=== PATIENT | female | born 1985 | race Caucasian/White ===

== ENCOUNTER → 2020-09-16 | Outpatient (CLI) | payer OTHER ==
[~2020-09-16] MED LIST: HYDROCODON-ACE1 EAC2 PO; IBUPROFEN200 MG PO; LEVOTHYROXINE112 MCG PO; MONTELUKAST SOD10 MG PO; VITAMIN D350 MC3 PO
== END ==
LOC: KOH-I 09-11 15:15
DX: S83.242A Other tear of medial meniscus, current injury, left knee, initial encounter (principal); R55 Syncope and collapse; M76.50 Patellar tendinitis, unspecified knee
CPT/HCPCS: 73721

== ENCOUNTER → 2020-10-02 | Outpatient (CLI) | payer OTHER ==
[~2020-10-02] MED LIST changes: +BUSPIRONE HCL15 MG PO; +CELECOXIB100 MG PO; +TYLENOL 8 HOUR650 MG PO
[2020-10-02 11:25] LABS: HEMOGLOBIN 14.2 gm/dl (12.3-15.3); RED BLOOD COUNT 4.94 M/UL (4.00-5.10); WHITE BLOOD COUNT 7.7 K/UL (4.5-11.0)
[2020-10-02 11:43] LABS: BUN/CREATININE RATIO 12 (0-10)
== END ==
LOC: OPSV2 10:25
PROVIDERS: Orthopaedic Surgery
DX: Z01.812 Encounter for preprocedural laboratory examination (principal); S83.242A Other tear of medial meniscus, current injury, left knee, initial encounter; X58.XXXA Exposure to other specified factors, initial encounter
CPT/HCPCS: 36415; 80048; 85025

== ENCOUNTER → 2020-10-08 | Day surgery (SDC) | payer OTHER ==
[~2020-10-08] VITALS: Ht 165.1 cm; Wt 122.9 kg
== END | disposition home or self-care (01) ==
LOC: OR 07:26
DX: S83.242A Other tear of medial meniscus, current injury, left knee, initial encounter (principal); M94.262 Chondromalacia, left knee; Z91.81 History of falling; M76.9 Unspecified enthesopathy, lower limb, excluding foot; M65.9 Synovitis and tenosynovitis, unspecified; E55.9 Vitamin D deficiency, unspecified; Z90.49 Acquired absence of other specified parts of digestive tract; Z20.822 Contact with and (suspected) exposure to COVID-19; I49.8 Other specified cardiac arrhythmias; E66.01 Morbid (severe) obesity due to excess calories; Z68.42 Body mass index [BMI] 45.0-49.9, adult; E03.9 Hypothyroidism, unspecified
CPT/HCPCS: 84703; J0171; J0690; J1100; J1170; J1885; J2001; J2250; J2405; J2704; J3010; J7120

== ENCOUNTER 2020-12-20 16:12 | Inpatient (IN) | payer OTHER ==
[~2020-12-20] VITALS: Ht 165.1 cm; Wt 133.0 kg
[~2020-12-20 16:12] MED LIST changes: -BUSPIRONE HCL15 MG PO; -CELECOXIB100 MG PO; -LEVOTHYROXINE112 MCG PO; -TYLENOL 8 HOUR650 MG PO
[2020-12-20 16:58] LABS: HEMOGLOBIN 14.9 gm/dl (12.3-15.3); RED BLOOD COUNT 4.82 M/UL (4.00-5.10); WHITE BLOOD COUNT 3.4 K/UL (4.5-11.0)
[2020-12-20 17:32] LABS: BUN/CREATININE RATIO 8 (0-10)
[2020-12-21 04:10] LABS: HEMOGLOBIN 13.5 gm/dl (12.3-15.3); RED BLOOD COUNT 4.37 M/UL (4.00-5.10); WHITE BLOOD COUNT 3.2 K/UL (4.5-11.0)
[2020-12-21 04:35] LABS: BUN/CREATININE RATIO 11 (0-10)
[2020-12-21] MEDS ORDERED: BUSPIRONE HCL15 MG PO (12:04)
[2020-12-21] MEDS ORDERED: CELECOXIB100 MG PO (12:05)
[2020-12-21] MEDS ORDERED: TYLENOL 8 HOUR650 MG PO (12:06)
[2020-12-21] MEDS ORDERED: LEVOTHYROXINE112 MCG PO (15:06)
[2020-12-22 07:06] LABS: HEMOGLOBIN 13.3 gm/dl (12.3-15.3); RED BLOOD COUNT 4.4 M/UL (4.00-5.10)
[2020-12-22 07:07] LABS: WHITE BLOOD COUNT 8.4 K/UL (4.5-11.0)
[2020-12-22 07:23] LABS: BUN/CREATININE RATIO 14 (0-10)
[2020-12-23 06:29] LABS: HEMOGLOBIN 13.6 gm/dl (12.3-15.3); RED BLOOD COUNT 4.47 M/UL (4.00-5.10); WHITE BLOOD COUNT 10.5 K/UL (4.5-11.0)
[2020-12-23 06:50] LABS: BUN/CREATININE RATIO 16 (0-10)
--- NOTE | 2020-12-24 06:21 | NUR ---
12/24/2020 @ 04:45 - Patient O2 sat is fluctuating between 70's-mid 80's. Patient is tachypneic and has shallow breaths. Patient is placed on nonrebreather at 100%. O2 sat is still not increasing above 88%. Dr Luna notified of condition change at 04:55, obtained order for Bipap 10/5 and Robitussin 100mg q6h prn. 05:25 - Patient placed on Bipap 10/5. O2 sat increased to mid-90's. Patient is still tachypneic with shallow breaths. 05:45 - Morphine 0.5mg administered to assist with decreasing the increased respiratory rate.
[2020-12-24 07:07] LABS: HEMOGLOBIN 13.1 gm/dl (12.3-15.3); RED BLOOD COUNT 4.31 M/UL (4.00-5.10); WHITE BLOOD COUNT 12.2 K/UL (4.5-11.0)
[2020-12-24 07:34] LABS: BUN/CREATININE RATIO 17 (0-10)
--- NOTE | 2020-12-24 10:03 | NUR ---
ATTEMPTED TO CALL PT , GINA, PER PATIENT REQUEST. NO ANSWER. WILL ATTEMPT TO MAKE CONTACT WITH HIM AT A LATER TIME.
--- NOTE | 2020-12-24 11:35 | NUR ---
SPOKE WITH PT , GINA, INFORMED HIM OF PT WORSENING AND EDUCATED HIM ON THE IMPORTANCE OF SPEAKING WITH ABOUT THE POSSIBILITY OF INTUBATION. I HAVE ALREADY HAD THIS DISCUSSION WITH PATIENT. ALSO TOLD HIM ABOUT PATIENT BEING TRANSFERRED TO ICU TO ROOM 2124. REPORT GIVEN TO SAIRA TEJEDA. PT STABLE AT THIS TIME. WCTM.
[2020-12-25 04:47] LABS: HEMOGLOBIN 13.2 gm/dl (12.3-15.3); RED BLOOD COUNT 4.27 M/UL (4.00-5.10)
[2020-12-25 05:08] LABS: BUN/CREATININE RATIO 16 (0-10)
[2020-12-26 06:24] LABS: HEMOGLOBIN 12.6 gm/dl (12.3-15.3); RED BLOOD COUNT 4.15 M/UL (4.00-5.10); WHITE BLOOD COUNT 11.1 K/UL (4.5-11.0)
[2020-12-26 07:44] LABS: BUN/CREATININE RATIO 21 (0-10)
[2020-12-26] MEDS ORDERED: LEVOPHED (17:21)
[2020-12-26] MEDS ORDERED: DECADRON IM/I4 MG/ML IVP ×2 (17:21→17:22)
[2020-12-26] MEDS ORDERED: PROPOFOL (17:21)
[2020-12-26] MEDS ORDERED: ENOXAPARIN40 MG/0.4 SC ×2 (17:21→17:22)
[2020-12-27 08:14] LABS: HEMOGLOBIN 13.3 gm/dl (12.3-15.3); RED BLOOD COUNT 4.46 M/UL (4.00-5.10)
[2020-12-27 08:15] LABS: WHITE BLOOD COUNT 15.2 K/UL (4.5-11.0)
[2020-12-27 08:37] LABS: BUN/CREATININE RATIO 23 (0-10)
--- NOTE | 2020-12-27 08:55 | NUR ---
SPOKE WITH SAIRA ADAMSON @ [facility]. PT INFO UPDATED. NO BED AVAILABLE AT THIS TIME. WILL UPDATE DAILY.
--- NOTE | 2020-12-27 12:09 | NUR ---
UPDATE GIVEN TO HER MOTHER - MASTER. UNABLE TO CONTACT HER - GINA - STATES PHONE HAS BEEN DISCONNECTED.
--- NOTE | 2020-12-27 13:52 | NUR ---
PT UNPRONED PER PROTOCOL. DEPENDENT EDEMA NOTED TO BOTH EYES WITH THE LEFT EYE MORE EDEMATOUS THAN THE RIGHT. COOL COMPRESSES APPLIED. BED LINENS CHANGED.
[2020-12-28 05:46] LABS: HEMOGLOBIN 14.1 gm/dl (12.3-15.3); RED BLOOD COUNT 4.57 M/UL (4.00-5.10); WHITE BLOOD COUNT 18.1 K/UL (4.5-11.0)
[2020-12-28 05:48] LABS: BUN/CREATININE RATIO 19 (0-10)
[2020-12-29 05:00] LABS: HEMOGLOBIN 14.3 gm/dl (12.3-15.3); RED BLOOD COUNT 4.5 M/UL (4.00-5.10); WHITE BLOOD COUNT 17.9 K/UL (4.5-11.0)
[2020-12-29 05:28] LABS: BUN/CREATININE RATIO 11 (0-10)
--- NOTE | 2020-12-30 00:40 | NUR ---
Patient remains proned. Report update given. care resumed.
--- NOTE | 2020-12-30 02:19 | NUR ---
RECEIVED CALL FROM [facility]. UPDATE GIVEN . STILL WAITING FOR AVAILABLE BED.
[2020-12-30 06:28] LABS: HEMOGLOBIN 12.7 gm/dl (12.3-15.3); RED BLOOD COUNT 3.77 M/UL (4.00-5.10); WHITE BLOOD COUNT 16.4 K/UL (4.5-11.0)
[2020-12-30 07:05] LABS: BUN/CREATININE RATIO 12 (0-10)
--- NOTE | 2020-12-30 19:20 | NUR ---
RECEIVED CALL FROM [facility]. BED 623 OBTAINED. REPORT GIVEN TO "DIANA LONG " . DR. LEONARDO NOTIFIED OF TRANSFER. [facility] NOTIFIED , PATIENTS WILL BE NOTIFIED BY DR. LEONARDO REGARDING TRANSFER.
--- NOTE | 2020-12-30 20:30 | NUR ---
[facility] HERE TO TRANSPORT. PATIENT LEFT VIA STRETCHER @ 2029. HER WAS NOTIFIED . BELONGINGS OBTAINED BY SECURITY . WHEN I SPOKE TO MR HUITRON HE STATED PATIENTS MOTHER IS A PATIENT HERE AT [facility]. BELONGINGS WILL BE GIVEN TO MASTER JOHNSON ( PATIENTS MOTHER ) BY SECURITY.
== END 2020-12-30 20:30 | disposition short-term general hospital (02) | DRG 870 ==
LOC: ER1 16:12 → CDU 18:58 → MED SURG 4 18:58 → CCU 18:58 → MED SURG 4 12-21 11:11 → CCU 12-24 12:25
PROVIDERS: Family Medicine; Internal Medicine; Internal Medicine Pulmonary Disease; ADMIT Internal Medicine
PROC: XW033E5 Introduction of Remdesivir Anti-infective into Peripheral Vein, Percutaneous Approach, New Technology Group 5 (ICD-10-PCS; principal; 2020-12-20)
PROC: 3E0333Z Introduction of Anti-inflammatory into Peripheral Vein, Percutaneous Approach (ICD-10-PCS; 2020-12-20)
PROC: 3E033XZ Introduction of Vasopressor into Peripheral Vein, Percutaneous Approach (ICD-10-PCS; 2020-12-20)
PROC: 8E0ZXY6 Isolation (ICD-10-PCS; 2020-12-20)
PROC: 5A0945A Assistance with Respiratory Ventilation, 24-96 Consecutive Hours, High Flow/Velocity Cannula (ICD-10-PCS; 2020-12-20)
PROC: 8E0ZXY6 Isolation (ICD-10-PCS; 2020-12-20)
PROC: XW033H5 Introduction of Tocilizumab into Peripheral Vein, Percutaneous Approach, New Technology Group 5 (ICD-10-PCS; 2020-12-22)
PROC: 5A09457 Assistance with Respiratory Ventilation, 24-96 Consecutive Hours, Continuous Positive Airway Pressure (ICD-10-PCS; 2020-12-24)
PROC: B24BZZ4 Ultrasonography of Heart with Aorta, Transesophageal (ICD-10-PCS; 2020-12-25)
PROC: 0BH17EZ Insertion of Endotracheal Airway into Trachea, Via Natural or Artificial Opening (ICD-10-PCS; 2020-12-26)
PROC: 5A1955Z Respiratory Ventilation, Greater than 96 Consecutive Hours (ICD-10-PCS; 2020-12-26)
PROC: 02HV33Z Insertion of Infusion Device into Superior Vena Cava, Percutaneous Approach (ICD-10-PCS; 2020-12-26)
PROC: B548ZZA Ultrasonography of Superior Vena Cava, Guidance (ICD-10-PCS; 2020-12-26)
DX: A41.89 Other specified sepsis (principal); U07.1 COVID-19; J12.82 Pneumonia due to coronavirus disease 2019; J80 Acute respiratory distress syndrome; R65.21 Severe sepsis with septic shock; J15.9 Unspecified bacterial pneumonia; E87.2 Acidosis; M62.82 Rhabdomyolysis; E03.9 Hypothyroidism, unspecified; D72.829 Elevated white blood cell count, unspecified; G83.9 Paralytic syndrome, unspecified; I07.1 Rheumatic tricuspid insufficiency; T38.0X5A Adverse effect of glucocorticoids and synthetic analogues, initial encounter; E87.6 Hypokalemia; G47.33 Obstructive sleep apnea (adult) (pediatric); L25.9 Unspecified contact dermatitis, unspecified cause; E66.01 Morbid (severe) obesity due to excess calories; E06.3 Autoimmune thyroiditis; Z90.49 Acquired absence of other specified parts of digestive tract; Z88.7 Allergy status to serum and vaccine; Z86.11 Personal history of tuberculosis; Z98.890 Other specified postprocedural states; Z23 Encounter for immunization; Z68.34 Body mass index [BMI] 34.0-34.9, adult
CPT/HCPCS: ECHO; 31500; 36415; 36600; 71045; 80048; 80053; 80076; 80202; 82550; 82553; 82728; 82803; 83605; 83615; 83735; 83874; 83880; 84100; 84132; 84439; 84443; 84484; 85025; 85027; 85379; 85384; 85652; 86140; 87081; 93005; 93306; 94002; 94003; 94640; 94660; 94664; 94760; 96374; 97161; 99285; A6212; J0295; J0456; J0696; J1100; J1200; J1650; J1940; J2060; J2185; J2250; J2270; J2405; J2704; J3010; J3370; J7030; J7040; J7050; J7070; Q0249; Q9967; U0002

== ENCOUNTER 2021-04-25 02:33 | Emergency (ER) | payer OTHER ==
[~2021-04-25 02:33] MED LIST changes: +BUSPIRONE HCL15 MG PO; +CELECOXIB100 MG PO; +DECADRON IM/I4 MG/ML IVP; +ENOXAPARIN40 MG/0.4 SC; +LEVOPHED; +LEVOTHYROXINE112 MCG PO; +PROPOFOL; +TYLENOL 8 HOUR650 MG PO
[2021-04-25 03:02] LABS: HEMOGLOBIN 14.8 gm/dl (12.3-15.3); RED BLOOD COUNT 5.13 M/UL (4.00-5.10); WHITE BLOOD COUNT 19.2 K/UL (4.5-11.0)
[2021-04-25 03:47] LABS: BUN/CREATININE RATIO 12 (0-10)
== END 2021-04-26 00:12 | disposition short-term general hospital (02) ==
LOC: ER1 02:33
PROVIDERS: Family Medicine
DX: J38.6 Stenosis of larynx (principal); Z20.822 Contact with and (suspected) exposure to COVID-19; J96.90 Respiratory failure, unspecified, unspecified whether with hypoxia or hypercapnia
CPT/HCPCS: 0240U; 36600; 70491; 71045; 80053; 81001; 82550; 82553; 82803; 83605; 84484; 85025; 85610; 87040; 87070; 87205; 93005; 94640; 94664; 94760; 96365; 96366; 96375; 96376; 99285; J0456; J0696; J2930; J7030; Q9967

== ENCOUNTER → 2021-05-11 | Outpatient (CLI) | payer OTHER | LOC: HEART 5 15:58 | DX: R06.00 Dyspnea, unspecified (principal) | CPT/HCPCS: 94060; 94729 ==